=== PATIENT | female | born 1960 | race Caucasian/White ===

== ENCOUNTER → 2018-03-26 | Outpatient (CLI) | payer BC ==
[~2018-03-26] MED LIST: ASPI81CH PO; BENADRYL25 MG PO; CALCA500CH PO; CONEST.625 PO; Flovent Diskus50 MCG IH; Glucosamine Ch1 EAC2; Multiple Vitam1 EAC1 PO
== END | disposition home or self-care (01) ==
LOC: PLD 15:10 → LAB SHORT 15:10
DX: D48.5 Neoplasm of uncertain behavior of skin (principal)
CPT/HCPCS: 88305

== ENCOUNTER 2018-12-28 11:01 | Emergency (ER) | payer BC ==
[~2018-12-28] VITALS: Ht 167.6 cm; Wt 77.1 kg
[2018-12-28 12:15] LABS: BASOPHILS ABSOLUTE AUTO 0.04 K/mm3 (0.00-0.23); BASOPHILS PERCENT AUTO 0 % (0-2); EOSINOPHILS ABSOLUTE AUTO 0.12 K/mm3 (0.00-0.68); EOSINOPHILS PERCENT AUTO 1 % (0-6); Hematocrit 41.6 % (33.0-51.0); Hemoglobin 13.5 g/dL (11.5-16.0); IMMATURE GRAN ABSOLUTE AUTO 0.02 K/mm3 (0.00-0.10); IMMATURE GRAN PERCENT AUTO 0 % (0-1); LYMPHOCYTES ABSOLUTE AUTO 3.91 K/mm3 (0.84-5.20); LYMPHOCYTES PERCENT AUTO 41 % (21-46); MONOCYTES ABSOLUTE AUTO 0.77 K/mm3 (0.16-1.47); MONOCYTES PERCENT AUTO 8 % (4-13); Mean Corpuscular HGB Conc 32.5 g/dL (31.5-36.5); Mean Corpuscular Volume 89 fL (80-100); Mean Platelet Volume 10.4 fL (9.1-12.4); NEUTROPHILS ABSOLUTE AUTO 4.77 K/mm3 (1.96-9.15); NEUTROPHILS PERCENT AUTO 50 % (41-73); Platelet Count 383 K/mm3 (150-400); RDW Coefficient Variation 14.1 % (11.7-14.2); RDW Standard Deviation 45.5 fL (35.1-46.3); Red Blood Cell Count 4.66 M/mm3 (3.80-5.20); White Blood Cell Count 9.63 K/mm3 (4.00-11.30)
[2018-12-28 12:50] LABS: Alanine Aminotransfer (ALT/SGP 18 U/L (12-78); Albumin/Globulin Ratio 0.8 (0.8-1.8); Alk Phos 87 U/L (50-136); Anion Gap 7 mmol/L (6-16); Aspartate Aminotrans (AST/SGOT 11 U/L (12-37); Bilirubin, Total 0.3 mg/dL (0.1-1.0); Blood Urea Nitrogen 19 mg/dL (8-24); Bun/Creatinine Ratio 23.3 (12.0-20.0); CO2, Blood 23 mmol/L (21-32); Calcium, Blood 8.8 mg/dL (8.5-10.1); Chloride, Blood 109 mmol/L (98-108); Creatinine, Blood 0.81 mg/dL (0.40-1.00); Globulin, Blood 3.7 g/dL (2.2-4.0); Glomerular Filtration Rate >60 (60-); Glucose, Blood 107 mg/dL (70-99); Potassium, Blood 3.9 mmol/L (3.5-5.5); Sodium, Blood 139 mmol/L (136-145); Total Protein, Blood 6.7 g/dL (6.4-8.2); Troponin I 0.037 ng/mL (0.000-0.040)
[2018-12-28] MEDS ORDERED: Toprol Xl50 MG PO (15:14)
[2018-12-28 15:52] LABS: Free Thyroxine 0.97 ng/dL (0.70-1.60)
[2018-12-28 15:54] LABS: Thyroid Stimulating Hormone 1.84 uIU/mL (0.360-4.800)
== END 2018-12-28 15:40 | disposition home or self-care (01) ==
LOC: ER 11:01
PROVIDERS: Emergency Medicine; Physician Assistant
DX: I48.91 Unspecified atrial fibrillation (principal); Z79.899 Other long term (current) drug therapy; Z79.82 Long term (current) use of aspirin
CPT/HCPCS: 36415; 71046; 80053; 84439; 84443; 84484; 85025; 93005; 93010; 96374; 99285-25

== ENCOUNTER 2019-01-01 07:29 | Day surgery (SDC) | payer BC ==
[~2019-01-01] VITALS: Ht 170.2 cm; Wt 77.0 kg
[~2019-01-01 07:29] MED LIST changes: +Toprol Xl50 MG PO
[2019-01-01] MEDS ORDERED: ELIQUIS5 MG PO (09:39)
== END 2019-01-01 09:30 | disposition home or self-care (01) ==
LOC: MHTC 07:29 → ORSCMMR 07:31 → MHTC 07:45
DX: I48.0 Paroxysmal atrial fibrillation (principal); I51.7 Cardiomegaly; R51 Headache; Z79.899 Other long term (current) drug therapy
CPT/HCPCS: 92960; 93005; 93010; 93312; 93321; 93325; 99152; 99153; J2250; J2310; J3010; J7030

== ENCOUNTER 2020-05-26 06:25 | Day surgery (SDC) | payer BC ==
[~2020-05-26] VITALS: Ht 165.1 cm; Wt 82.5 kg
[~2020-05-26 06:25] MED LIST changes: +ELIQUIS5 MG PO; +XARELTO2.5 M1 PO
--- NOTE | 2020-05-26 07:08 | NUR ---
History, Chart, Medications and Allergies reviewed before start of procedure. Lungs clear T/O to Auscultation. Patient confirms NPO status and agrees with scheduled surgery. Pre-Op teaching done. Pt verbalizes understanding. Patient reports completing Chlorhexadine shower X2 prior to admission to hospital.
--- NOTE | 2020-05-26 08:02 | NUR ---
05/26/20 0802 Mikael Lee NO ANTIBIOTICS PER DR PRATT
[2020-05-26 09:10] LABS: BASOPHILS ABSOLUTE AUTO 0.08 K/mm3 (0.00-0.23); BASOPHILS PERCENT AUTO 1 % (0-2); EOSINOPHILS ABSOLUTE AUTO 0.26 K/mm3 (0.00-0.68); EOSINOPHILS PERCENT AUTO 3 % (0-6); Hematocrit 38.2 % (33.0-51.0); Hemoglobin 12.3 g/dL (11.5-16.0); IMMATURE GRAN ABSOLUTE AUTO 0.03 K/mm3 (0.00-0.10); IMMATURE GRAN PERCENT AUTO 0 % (0-1); LYMPHOCYTES ABSOLUTE AUTO 4.08 K/mm3 (0.84-5.20); LYMPHOCYTES PERCENT AUTO 42 % (21-46); MONOCYTES ABSOLUTE AUTO 0.58 K/mm3 (0.16-1.47); MONOCYTES PERCENT AUTO 6 % (4-13); Mean Corpuscular HGB 28.7 pg (26.0-34.0); Mean Corpuscular HGB Conc 32.2 g/dL (31.5-36.5); Mean Corpuscular Volume 89 fL (80-100); Mean Platelet Volume 9.8 fL (9.1-12.4); NEUTROPHILS ABSOLUTE AUTO 4.75 K/mm3 (1.96-9.15); NEUTROPHILS PERCENT AUTO 49 % (41-73); Platelet Count 383 K/mm3 (150-400); RDW Coefficient Variation 14.3 % (11.7-14.2); RDW Standard Deviation 46.7 fL (35.1-46.3); Red Blood Cell Count 4.29 M/mm3 (3.80-5.20); White Blood Cell Count 9.78 K/mm3 (4.00-11.30)
--- NOTE | 2020-05-26 09:43 | NUR ---
PT ARRIVED TO THE UNIT AT APPROXIMATELY 0930. PT IS ORIENTED BUT DROWYS. SHE DENIES PAIN AND NAUSEA. PT WAS ASSISTED TO TAKE A DRINK OF WATER AND TOLERATED WELL. PT'S IS AT THE BEDSIDE. VSS. WILL MONITOR UNTIL REPORT TO ONCOMING RN.
--- NOTE | 2020-05-26 18:34 | NUR ---
SHIFT SUMMARY PT IS POD#0 FROM ANTERIOR REPAIR WITH DR. PRATT. SHE HAS BEEN ALERT AND ORIENTED SINCE SURGERY. PAIN HAS BEEN EASILY MANAGED WITH TORADOL NORCO. PT IS AMBULATING WITHOUT ASSISTANCE. GOOD URINE OUTPUT. PT TOLERATING PO. SCANT VAGINAL BLEEDING. VSS. WILL REPORT TO ONCOMING RN.
--- NOTE | 2020-05-26 22:03 | NUR ---
PATIENT HAS BEEN UP TO THE BR WITH MINIMAL ASSISTANCE FROM HER . VOIDING WELL, CLEAR YELLOW URINE, SCANT VAGINAL BLEEDING. IV REMOVED INTACT. DISCHARGE MEDICATIONS AND INSTRUCTIONS REVIEWED WITH THE PATIENT AND OSWALDO. WILL BE DRIVING THE PATIENT HOME. DISCHARGED AT 2202
[2020-05-27 04:54] LABS: BASOPHILS ABSOLUTE AUTO 0.04 K/mm3 (0.00-0.23); BASOPHILS PERCENT AUTO 1 % (0-2); EOSINOPHILS ABSOLUTE AUTO 0.22 K/mm3 (0.00-0.68); EOSINOPHILS PERCENT AUTO 3 % (0-6); Hematocrit 39.4 % (33.0-51.0); Hemoglobin 12.5 g/dL (11.5-16.0); IMMATURE GRAN ABSOLUTE AUTO 0.03 K/mm3 (0.00-0.10); IMMATURE GRAN PERCENT AUTO 0 % (0-1); LYMPHOCYTES ABSOLUTE AUTO 2.72 K/mm3 (0.84-5.20); LYMPHOCYTES PERCENT AUTO 32 % (21-46); MONOCYTES ABSOLUTE AUTO 0.65 K/mm3 (0.16-1.47); MONOCYTES PERCENT AUTO 8 % (4-13); Mean Corpuscular HGB 28.5 pg (26.0-34.0); Mean Corpuscular HGB Conc 31.7 g/dL (31.5-36.5); Mean Corpuscular Volume 90 fL (80-100); Mean Platelet Volume 9.7 fL (9.1-12.4); NEUTROPHILS ABSOLUTE AUTO 4.83 K/mm3 (1.96-9.15); NEUTROPHILS PERCENT AUTO 57 % (41-73); Platelet Count 369 K/mm3 (150-400); RDW Coefficient Variation 14.3 % (11.7-14.2); RDW Standard Deviation 47.2 fL (35.1-46.3); Red Blood Cell Count 4.39 M/mm3 (3.80-5.20); White Blood Cell Count 8.49 K/mm3 (4.00-11.30)
--- NOTE | 2020-05-27 05:38 | NUR ---
PATEINT HAS SLEPT ALL NIGHT. WAKES TO VERBAL STIMULI. PATIENT IS EXCITED ABOUT THE POSSIBLITY OF GOING HOME TODAY.
--- NOTE | 2020-05-27 07:30 | NUR ---
pt sleeping wakes to verbal stimuli laboy cath and vag packing removed pt given additional simone pads inst to call with first void or if unable to void after a short while est 1 to 2 hrs pt reports min dull ache 1/10 no nausea passing flatus awaiting breakfast
--- NOTE | 2020-05-27 08:46 | NUR ---
pt oob in chair had breakfast meds given pain still / no void yet
--- NOTE | 2020-05-27 11:06 | NUR ---
dr rodriguez by to see pt
[2020-05-27] MEDS ORDERED: IBUP800 PO (11:29)
[2020-05-27] MEDS ORDERED: Norco 5-325 Ta1 EACH PO (11:30)
--- NOTE | 2020-05-27 11:45 | NUR ---
discharge instructions reviewed with pt verbalized no rx given no acute changes wc escort to car with spouse
== END 2020-05-27 11:46 | disposition home or self-care (01) ==
LOC: ORSCMMR 06:25 → ORD 07:30 → SURS 09:13 → ORD 09:30 → ORSCMMR 05-27 11:46
PROVIDERS: Obstetrics & Gynecology
PROC: 0JQC0ZZ Repair Pelvic Region Subcutaneous Tissue and Fascia, Open Approach (ICD-10-PCS; principal; 2020-05-26 07:30)
DX: N81.10 Cystocele, unspecified (principal); I48.91 Unspecified atrial fibrillation; Z79.01 Long term (current) use of anticoagulants; Z79.899 Other long term (current) drug therapy
CPT/HCPCS: 36415; 85025; J0171; J1885; J2250; J2405; J2704; J3010; J7120; Q0163

== ENCOUNTER → 2021-04-19 | Outpatient (CLI) | payer BC ==
[~2021-04-19] MED LIST changes: +IBUP800 PO; +Norco 5-325 Ta1 EACH PO
== END ==
LOC: LAB SHORT 12:13 → LAB 12:13
DX: L98.9 Disorder of the skin and subcutaneous tissue, unspecified (principal); L28.0 Lichen simplex chronicus
CPT/HCPCS: 88305; 88312

== ENCOUNTER → 2022-07-24 | Outpatient (CLI) | payer BC ==
[2022-07-25 13:10] LABS: HPV 16 Negative (Negative); HPV 18 Negative (Negative); HPV OTHER HR TYPES Negative (Negative)
== END | disposition home or self-care (01) ==
LOC: LAB 09:30 → LAB SHORT 09:30
PROVIDERS: Obstetrics & Gynecology
DX: Z12.4 Encounter for screening for malignant neoplasm of cervix (principal)
CPT/HCPCS: 87624; G0123

== ENCOUNTER → 2022-08-29 | Outpatient (CLI) | payer BC ==
[2022-08-29 14:05] LABS: Stool Occult Bld Immuno 1 Negative (NEGATIVE)
== END ==
LOC: LAB SHORT 08:45 → LAB 08:45 → LAB SHORT 09:47
PROVIDERS: Physician Assistant
DX: K52.9 Noninfective gastroenteritis and colitis, unspecified (principal)
CPT/HCPCS: 87015; 87045; 87046; 87177; 87205; 87209; 87899; G0328